=== PATIENT | male | born 1975 | race Caucasian/White ===

== ENCOUNTER 2024-09-26 13:51 | Outpatient (CLI) | payer BC ==
[2024-09-26] MEDS ORDERED: Iopamidol 370 76% 100 ML VIAL ONE (14:06)
== END 2024-09-26 13:52 | disposition home or self-care (01) ==
LOC: BICULT 13:51
PROVIDERS: ATTEND Urology
DX: N20.1 Calculus of ureter (principal); I86.1 Scrotal varices
CPT/HCPCS: 74178; 76870; 93976